=== PATIENT | female | born 1950 | race Caucasian/White ===

== ENCOUNTER 2017-10-14 16:57 | Emergency (ER) | payer MEDICARE, OTHER ==
[~2017-10-14] VITALS: Ht 157.5 cm; Wt 99.8 kg
--- NOTE | 2017-10-14 18:27 | NUR ---
CALLED CAREGIVER AMARA AT [phone], TRANSFERRED CALL TO LULU SHEN
[2017-10-14] MEDS ORDERED: BISA10SU8 RC (18:34)
[2017-10-14] MEDS ORDERED: MULT-447 PO (18:34)
[2017-10-14] MEDS ORDERED: AMLO10TA2 PO (18:34)
[2017-10-14] MEDS ORDERED: CITA40TA11 PO (18:34)
[2017-10-14] MEDS ORDERED: DONE10TA44 PO (18:34)
[2017-10-14] MEDS ORDERED: DOCU-141 PO (18:34)
[2017-10-14] MEDS ORDERED: POTA10TA15 PO (18:34)
[2017-10-14] MEDS ORDERED: DIAZ5TAB PO (18:34)
[2017-10-14] MEDS ORDERED: FLUT16SP BNOSTRILS (18:34)
[2017-10-14] MEDS ORDERED: ACET-868 PO (18:34)
[2017-10-14] MEDS ORDERED: HYDR-548 PO (18:34)
[2017-10-14] MEDS ORDERED: SPIR25TA4 PO (18:34)
[2017-10-14] MEDS ORDERED: CYCL10TA9 PO (18:34)
[2017-10-14] MEDS ORDERED: ATOR10TA PO (18:34)
[2017-10-14] MEDS ORDERED: CYCL5TAB PO (18:34)
[2017-10-14] MEDS ORDERED: ALBU2.5V38 IH (18:34)
[2017-10-14] MEDS ORDERED: BENZ1LOZ12 MM (18:34)
[2017-10-14] MEDS ORDERED: ACID1TAB12 PO (18:34)
[2017-10-14] MEDS ORDERED: MAGN400O6 PO (18:34)
[2017-10-14] MEDS ORDERED: SENN-167 PO (18:34)
--- NOTE | 2017-10-14 18:35 | NUR ---
CALLED [facility] TO FIND OUT ABOUT PT, SAID THEY WILL CALL BACK IN 10 MIN
--- NOTE | 2017-10-14 22:30 | NUR ---
Pt ok to discharge per dr Olson. Pt discharged home with son. Patient discharged to home in stable condition. Written and verbal after care instructions given. Patient verbalizes understanding of instruction.
[2017-10-15 03:58] VITALS: BP 124/69
== END 2017-10-14 22:30 | disposition home or self-care (01) ==
LOC: ER 17:04
DX: Z00.8 Encounter for other general examination (principal); F32.9 Major depressive disorder, single episode, unspecified; G89.29 Other chronic pain; I10 Essential (primary) hypertension; R47.01 Aphasia; Z86.73 Personal history of transient ischemic attack (TIA), and cerebral infarction without residual deficits; Z88.8 Allergy status to other drugs, medicaments and biological substances
CPT/HCPCS: A4606; Z7610